=== PATIENT | female | born 1970 | race Caucasian/White ===

== ENCOUNTER 2019-07-16 09:51 | Outpatient (CLI) | payer OTHER, SELFPAY ==
--- NOTE | ~2019-07-16 | XR_ITS ---
EXAMINATION: XR chest 2V DATE: 07/16/2019 10:15 INDICATION: Pleural effusion. TECHNIQUE: Frontal and lateral views of the chest were obtained. COMPARISON: Chest 2 views 05/09/2019 FINDINGS: There is a moderate-sized right pleural effusion. There are airspace opacities at right karol g base, likely atelectasis. No pneumothorax. The heart size is normal. IMPRESSION: 1. Moderate-sized right pleural effusion with interval improvement. Reviewed, dictated and finalized at location A. [facility]
== END 2019-07-16 09:52 | disposition home or self-care (01) ==
DX: J90 Pleural effusion, not elsewhere classified (principal)
CPT/HCPCS: 71046

== ENCOUNTER 2019-11-05 07:53 | Outpatient (CLI) | payer OTHER, SELFPAY ==
--- NOTE | ~2019-11-05 | XR_ITS ---
XR chest 2V DATE: 11/05/2019 08:14 INDICATION: Right pleural effusion TECHNIQUE: PA and lateral views COMPARISON: 07/16/2019 PA and lateral chest FINDINGS: There is persistent mild right pleural effusion and right basilar infiltrate or atelectasis . There is no significant change since 07/16/2019. Normal heart size. No left pleural effusion. No hilar or mediastinal enlargement. Mild levoscoliosis and degenerative change of the thoracic spine. Diffuse osteopenia. IMPRESSION: Mild right pleural effusion and right basilar infiltrate or atelectasis, stable since 06/18 Reviewed, dictated and finalized at location A. IMPRESSION: Mild right pleural effusion and right basilar infiltrate or atelect asis, stable since 07/16/2019
== END 2019-11-05 07:54 | disposition home or self-care (01) ==
PROVIDERS: PCP Family Medicine; Visit Provider Internal Medicine Critical Care Medicine
DX: J90 Pleural effusion, not elsewhere classified (principal)
CPT/HCPCS: 71046

== ENCOUNTER 2020-05-02 09:37 | Outpatient (CLI) | payer OTHER, SELFPAY ==
--- NOTE | ~2020-05-02 | XR_ITS ---
XR chest 2V DATE: 05/02/2020 10:04 INDICATION: Right pleural effusion TECHNIQUE: PA and lateral views COMPARISON: 11/04/2021 view chest 07/16/2021 view chest 05/09/2019 2 view chest FINDINGS: There is stable right lower lobe infiltrate and/atelectasis and mild right pleural effusion compared to 11/05/2019. Normal heart size. No hilar or mediastinal enlargement. No pulmonary infiltrate or consolidation is n oted otherwise. No left pleural effusion. No pulmonary vascular congestion or pneumothorax. IMPRESSION: Moderate pleural effusion and right basilar infiltrate or atelectasis, stable since 2019 Reviewed, dictated and finalized at location B. OMER RETENTION SPECIALIST IMPRESSION: Moderate pleural effusion and right basilar infiltrate or atelectas is, stable since 11/05/2019
== END 2020-05-02 09:38 | disposition home or self-care (01) ==
PROVIDERS: PCP Family Medicine
DX: J90 Pleural effusion, not elsewhere classified (principal)
CPT/HCPCS: 71046

== ENCOUNTER 2020-06-12 07:52 | Outpatient (CLI) | payer OTHER, SELFPAY ==
--- NOTE | ~2020-06-12 | XR_ITS ---
EXAMINATION: XR_ENEMABAC_CR DATE: 06/12/2020 08:52 INDICATION: Colon cancer screening. TECHNIQUE: A operations expert radiograph was obtained. A catheter was inserted into the patient's rectum. Contra st was infused by gravity. Gas was infused by hand pump. Fluoroscopic spot images and conventional ra diographs were obtained. Fluoroscopy exposure time was 2.2 minutes. A total of 28 fluoroscopic images and 13 overhead radiographs were obtained. COMPARISON: None. FINDINGS: There are few scattered colonic diverticula.. No strictures, intraluminal nodules/masses or other muc osal irregularities. Combined instrumented anterior and posterior spinal fusion at L5-S1. There is gr angela 1 anterolisthesis L4 on L5. IMPRESSION: 1. Minimal diverticulosis. Otherwise unremarkable double contrast enema. Reviewed, dictated and finalized at location A. LING COUNSELLOR
== END 2020-06-12 07:53 | disposition home or self-care (01) ==
PROVIDERS: PCP Family Medicine
DX: Z12.11 Encounter for screening for malignant neoplasm of colon (principal)
CPT/HCPCS: 74280

== ENCOUNTER 2023-02-21 19:10 | Emergency (ER) | payer OTHER, SELFPAY ==
--- NOTE | ~2023-02-21 | CT_ITS ---
EXAMINATION: CT pelvis wo con DATE: 02/21/2023 21:16 INDICATION: Right hip pain TECHNIQUE: High resolution computed tomography (CT) of the pelvis was performed without intravenous c ontrast. Additional sagittal and coronal reconstructions were performed. Automated exposure control a nd iterative reconstruction technique were employed. The dose-length product was 785.52 mGy-cm. COMPARISON: Pelvis and left hip radiographs dated 12/10/2003 FINDINGS: Mild spondylosis in the lower lumbar spine with combined instrumented L5-S1 anterior and posterior sp inal fusion. See separate lumbar spine CT report for further detail. Bilateral hip osteoarthritis. No fracture or suspected avascular necrosis. There is subtle stranding overlying the right greater troc hanter suggesting trochanteric bursitis. There are couple heterotopic enthesopathic ossicles at the g reater trochanteric insertion of the right gluteus medius tendon. No asymmetric muscular atrophy of t he pelvis or proximal thighs. Postoperative change along the anterior pelvic wall with very small john tral hernia along the midline surgical scar. There are few diverticula along the visualized sigmoid c olon without adjacent inflammatory stranding to suggest diverticulitis. The uterus is not identified and has likely been surgically resected. Bladder is normal. No pathologically enlarged pelvic or ingu inal lymphadenopathy. IMPRESSION: 1. Mild bilateral hip osteoarthritis. No acute osseous abnormality. 2. Suggestion of right trochanteric bursitis and underlying chronic enthesopathy at the greater troch anteric insertion of the right gluteus medius tendons. Reviewed, dictated and finalized at location A. IMPRESSION: 1. Mild bilateral hip osteoarthritis. No acute osseous abnormality. 2. Suggestion of right trochanteric bursitis and underlying chronic enthesopath y at the greater trochanteric insertion of the right gluteus medius tendons.
--- NOTE | ~2023-02-21 | CT_ITS ---
IMPRESSION: 1. Mild lumbar spondylosis with combined instrumented anterior and posterior sp inal fusion at L5-S1. 2. Chronic mild T11 compression fracture. 3. Likely chronic small right pleural effusion with pleural thickening and asso ciated round atelectasis in the right lower lobe. EXAMINATION: CT lumbar spine wo con DATE: 02/21/2023 21:16 INDICATION: Right radicular pain TECHNIQUE: Computed tomography (CT) of the lumbar spine was performed without intravenous contrast. A utomated exposure control and iterative reconstruction technique were employed. The dose-length produ ct was 1069.76 mGy-cm. COMPARISON: 10/04/2013 FINDINGS: Interval L5-S1 anterior and posterior spinal fusion with interbody fusion device and bilateral vertic al aileen and pedicle screw fixation. L5 is fused with 7 mm anterolisthesis with respect to S1. There is 3 mm anterolisthesis L4 on L5. Chronic appearing T11 compression fracture new since 2013 with 20% an terior vertebral body height loss. Remaining vertebral body heights are normal. Small right pleural e ffusion likely of exudative etiology with thickened pleura with a few scattered pleural calcific loca tion suggesting this is chronic. There is adjacent round atelectasis in the right lower lobe. Paraver tebral soft tissues are unremarkable. The following disc levels are specifically discussed: T11-T12: The disc does not extend beyond the endplate margin. There is mild to moderate bilateral fac et joint osteoarthritis. There is no neural foraminal stenosis. There is no central canal stenosis. T12-L1: Disc is mildly bulging. There is mild bilateral facet joint osteoarthritis. There is no neura l foraminal stenosis. There is no central canal stenosis. L1-L2: Disc is mildly bulging. There is mild bilateral facet joint osteoarthritis. There is no neural foraminal stenosis. There is normal central canal stenosis. L2-L3: Disc is mildly bulging. There is mild bilateral facet joint osteoarthritis. There is no neural foraminal stenosis. There is minimal central canal stenosis. L3-L4: Disc is mildly bulging. There is mild bilateral facet joint osteoarthritis. There is mild bila teral neural foraminal stenosis. There is minimal central canal stenosis. L4-L5: Disc is bulging. There is severe bilateral facet joint osteoarthritis. There is moderate bilat eral, right greater than left. neural foraminal stenosis. There is mild central canal stenosis. L5-S1: Disc space and bilateral facet joints are fused. There is mild bilateral neural foraminal sten osis. There is no central canal stenosis. IMPRESSION: 1. Mild lumbar spondylosis with combined instrumented anterior and posterior spinal fusion at L5-S1. 2. Chronic mild T11 compression fracture. 3. Likely chronic small right pleural effusion with pleural thickening and associated round atelectas is in the right lower lobe. Reviewed, dictated and finalized at location A.
[2023-02-21 19:25] VITALS: BP 119/69; PULSE 62; RESP 18; TEMP 36.3; O2SAT 99
[2023-02-21] MEDS: KETOROLAC 30 MG/ML VIAL (*BKC) IM (21:21)
--- NOTE | 2023-02-21 21:44 | ED.GENADULT ---
HPI - General Adult General Chief complaint: Extremity Injury, Lower Stated complaint: right hip pain - denies injury - hx RA Time Seen by Provider: 02/21/23 20:21 Source: patient Mode of arrival: ambulatory Limitations: no limitations History of Present Illness HPI narrative: This is a 52-year-old female with PMH of RA, OA, osteopenia Who presents to the ED with chief complaint of right hip pain x3 days. Patient denies any trauma or injury. She reports this has been gradually worsening since onset. Reports the pain is mostly in the right lateral hip area. Denies any skin changes or bruising. Reports she has been able to walk but it has been painful. Reports she has occasional radiating pains down the leg feel more due to her chronic back pain. Denies any numbness, weakness or any further site of pain. Related Data Allergies Allergy/AdvReac Type Severity Reaction Status Date / Time No Known Allergies Allergy Unknown Verified 02/21/23 19:10 No Known Allergies Allergy Paleness Uncoded 02/21/23 19:10 Review of Systems Review of Systems: All systems as dictated in [facility] Family History Family History (System 04/21/19 @ 12:09 by Rianna Martinez) Mother Family history of diabetes mellitus in first degree relative Other Cerebrovascular accident Diabetes mellitus Family history of cardiovascular disease Family history of coronary artery disease Family history of malignant melanoma Social History Social History (System 04/21/19 @ 12:09 by Rianna Martinez) Smoking end date: 06/16/05 Alcohol intake: never Exam Narrative: GENERAL: Well-appearing, well-nourished, and in no acute distress. HEAD: Normocephalic, atraumatic. EYES: PERRLA and EOMI. ENT: Nares clear, no rhinorrhea or epistaxis. Mucous membranes moist. Oropharynx without tonsillar hypertrophy exudate or other lesions. NECK: Supple. No adenopathy or masses. CHEST: No respiratory distress. Clear to auscultation. No wheezes rales or rhonchi HEART: Regular rate and rhythm. No murmur heard. Normal peripheral pulses. ABDOMEN: Soft, nontender, nondistended, normal active bowel sounds. MSK: Focal tenderness over the right lateral hip. No pain with logroll. She is able to bear weight. Neurovascular intact distally. No redness, bruising or warmth. No skin lesions. Left lower extremity is benign. SKIN: Warm, dry, no rash. NEURO: Alert and oriented x3. No focal deficits. PSYCH: Normal mood and affect. Course Vital Signs Vital signs: Vital Signs Temperature 97.3 F L 02/21/23 19:25 Pulse Rate 62 02/21/23 19:25 Respiratory Rate 18 02/21/23 19:25 Blood Pressure 119/69 02/21/23 19:25 Pulse Oximetry 99 02/21/23 19:25 Oxygen Delivery Room Air 02/21/23 19:25 Temperature 97.3 F L 02/21/23 19:25 Pulse Rate 65 02/21/23 22:37 Respiratory Rate 16 02/21/23 22:37 Blood Pressure 128/74 02/21/23 22:37 Pulse Oximetry 100 02/21/23 22:37 Oxygen Delivery Room Air 02/21/23 19:25 Medical Decision Making MDM Narrative Medical decision making narrative: This is a 52-year-old female who presents to the ED with chief complaint of right lateral hip pain onset x3 days. No injuries or trauma. Vitals are normal. Exam shows tenderness to the lateral hip without any skin changes. No warmth. Very low concern for any kind of infectious process. Symptoms are most likely consistent with right trochanteric bursitis. CT pelvis and CT lumbar spine showed degenerative changes throughout but no acute findings. CT pelvis does show evidence of bursitis on the right side. She improved greatly with Toradol here. Prescription for naproxen twice daily was given. Pt will be discharged in stable condition. Return precautions given and supportive measures discussed. Pt is understanding and agreeable with plan for discharge and follow-up with PCP. Vital Signs Vital Signs: Vital Signs Temperature 97.3 F L
[2023-02-21 22:37] VITALS: BP 128/74; PULSE 65; RESP 16; O2SAT 100
== END 2023-02-21 22:39 | disposition home or self-care (01) ==
PROVIDERS: Emergency Provider Physician Assistant
DX: M71.9 Bursopathy, unspecified (principal); M16.0 Bilateral primary osteoarthritis of hip; M06.9 Rheumatoid arthritis, unspecified; M85.80 Other specified disorders of bone density and structure, unspecified site; Z87.891 Personal history of nicotine dependence; M47.816 Spondylosis without myelopathy or radiculopathy, lumbar region; J90 Pleural effusion, not elsewhere classified; M48.54XA Collapsed vertebra, not elsewhere classified, thoracic region, initial encounter for fracture
CPT/HCPCS: 72131; 72192; 96372; 99284; J1885

== ENCOUNTER 2024-11-08 14:39 | Emergency (ER) | payer OTHER, MEDICAID, SELFPAY ==
--- NOTE | ~2024-11-08 | XR_ITS ---
XR foot LT min 3V Ordering provider: Leah Berman NP History: . PAIN MIDFOOT . Comparison: None. FINDINGS: BONES: No acute fracture or dislocation. JOINT SPACES: Narrowing of the proximal and distal interphalangeal joints.. No tarsal coalition. SOFT TISSUES: Ossification of the insertion of the tendo Achilles. IMPRESSION: No acute osseous abnormality left foot. Polyarticular osteoarthritic changes Reviewed, dictated and finalized at location A.
[2024-11-08 14:45] VITALS: BP 151/81; PULSE 88; RESP 16; TEMP 36.4; O2SAT 100
--- NOTE | 2024-11-08 14:46 | ED.LOWEXIN ---
HPI - Extremity Injury (Lower) General Chief Complaint: Extremity Injury, Lower Stated Complaint: INJURED L FOOT Time Seen by Provider: 11/08/24 14:49 Source: patient, RN notes reviewed and old records reviewed Mode of arrival: ambulatory Limitations: no limitations History of Present Illness HPI Narrative: 54 year old female who presents to express care with complaints of stepping out of bed yesterday and felt a pop in the dorsal and plantar mid foot aspect with pain which continues with swelling noted. Patient reports history of RA and is concerned for stress fracture to area. Patient reports that pain continues to left dorsal aspect of foot which radiates around some to plantar area despite ice elevation and Aleve OTC pain medication MD complaint: foot injury Onset (ago): day(s) (yesterday) Place: home Severity scale (1-10): 8 Exacerbating factors: weight bearing and other (standing) Treatments prior to arrival: cold therapy and NSAIDS (Aleve and elevation) Related Data Home Medications ?Medication ?Instructions ?Recorded ?Confirmed ?Last Taken ?Type cyclobenzaprine 10 mg tablet 10 mg PO TID 09/27/24 11/08/24 Unknown History duloxetine 30 mg capsule,delayed 30 mg PO QPM 09/27/24 11/08/24 Unknown History release duloxetine 60 mg capsule,delayed 60 mg PO QAM 09/27/24 11/08/24 Unknown History release erenumab-aooe 70 mg/mL 70 mg subcut MONTHLY 09/27/24 11/08/24 Unknown History subcutaneous auto-injector (Aimovig Autoinjector) gabapentin 400 mg capsule 400 mg PO TID 09/27/24 11/08/24 Unknown History losartan 50 mg tablet 50 mg PO DAILY 09/27/24 11/08/24 Unknown History mepolizumab 100 mg/mL subcutaneous 100 mg subcut MONTHLY 09/27/24 11/08/24 Unknown History syringe (Nucala) nortriptyline 25 mg capsule 25 mg PO DAILY 09/27/24 11/08/24 Unknown History ropinirole 1 mg tablet 1 mg PO ONCE 09/27/24 11/08/24 Unknown History ubrogepant 100 mg tablet (Ubrelvy) 100 mg PO .PRN 09/27/24 11/08/24 Unknown History upadacitinib 45 mg tablet,extended 45 mg PO DAILY 09/27/24 11/08/24 Unknown History release 24 hr (Rinvoq) Allergies Allergy/AdvReac Type Severity Reaction Status Date / Time No Known Allergies Allergy Unknown Verified 11/08/24 14:47 Review of Systems Review of Systems: CONSTITUTIONAL: Denies fever, chills, or sweats. EYES: Denies visual changes, redness, or discharge. ENT: Denies rhinorrhea, congestion, sore throat, or otalgia. CARDIOVASCULAR: Denies chest pain, palpitations, or edema. RESPIRATORY: Denies cough or dyspnea. GASTROINTESTINAL: Denies abdominal pain, nausea, vomiting, or diarrhea. GENITOURINARY: Denies dysuria or hematuria. SKIN: Denies rash or itching. MUSCULOSKELETAL: Denies back pain, reports pain to her left dorsal and plantar aspect of mid foot , or myalgia. NEUROLOGIC: Denies headache, numbness, or weakness. PSYCHIATRIC: Reports history of anxiety or depression. All systems reviewed & are unremarkable except as noted in HPI and below PMFSH Past Medical History Medical History Laryngopharyngeal reflux (LPR) Right-sided temporomandibular joint pain-dysfunction syndrome Chronic sinusitis Hypertrophy of nasal turbinates Nasal congestion Deviated nasal septum Otalgia of right ear Dysphagia Tobacco use disorder RLS (restless legs syndrome) COPD (chronic obstructive pulmonary disease) Migraine Neuropathy Rheumatoid arthritis Family History Family History Mother Family history of diabetes mellitus in first degree relative Other Cerebrovascular accident Diabetes mellitus Family history of cardiovascular disease Family history of coronary artery disease Family history of malignant melanoma Social History Social History Social History: Caffeine-none Years smoked: 40 Smoking status: Current every day smoker Alcohol intake: never Substance use: never Substance use type: does not use Comments At time of signature, agree with nursing past medical, surgical, social and family history. There is no relevant family history pertinent to the presenting complaint Exam Narrative: GENERAL: Well-appearing, well-nourished, obese and in no acute distress. HEAD: Normocephalic, atraumatic. EYES: PERRLA and EOMI. ENT: Nares clear, no rhinorrhea or epistaxis. Mucous membranes moist.TM's normal throat pink with no swelling NECK: Supple. no lymphadenopathy CHEST: Clear to auscultation. No respiratory distress. SAO2 100% on room air HEART: Regular rate and rhythm. No murmur heard. Normal peripheral pulses. ABDOMEN: Soft, nontender, nondistended, normal active bowel sounds. EXTREMITIES: Normal range of motion. No edema. Exception noted to left dorsal foot with some swelling noted with patient reporting pain to plantar aspect of left foot also when she ambulates. Pedal pulses palpable to left foot of adequate quality sensation intact and to flex and extend foot. SKIN: Warm, dry, no rash. NEURO: No focal deficits. Alert and oriented x3. Course Course Emergency Course: Patient is aware of diagnosis, understands and agrees to treatment plan.? Anticipatory guidance given.? Patient agrees to follow-up as directed and is aware of reasons to seek care at the emergency department. Portions of this record may have been created with voice recognition software Level of Care: Express Care Visit Vital Signs Vital signs: Vital Signs Temperature 36.4 C 11/08/24 14:45 Pulse Rate 88 11/08/24 14:45 Respiratory Rate 16 11/08/24 14:45 Blood Pressure 151/81 H 11/08/24 14:45 Pulse Oximetry 100 11/08/24 14:45 Temperature 36.4 C 11/08/24 14:45 Pulse Rate 88 11/08/24 14:45 Respiratory Rate 16 11/08/24 14:45 Blood Pressure 151/81 H 11/08/24 14:45 Pulse Oximetry 100 11/08/24 14:45 Reviewed MDM - Extremity Injury (Lower) Differential Diagnosis Differential diagnosis: Likely other (left foot pain and swelling. osteoarhritis, fracture of left foot, arthritis flare) Medical Records Attestation: I reviewed the patient's medical records. Imaging Data Attestation: I personally reviewed and interpreted this imaging study as follows: My impression: polyarticular osteoarthritic changes Radiologist's impression: [facility] [address] [place] [address] [place] [address] XRay Report Signed Patient: Sakshi Antony : 1970 MR#: [id number] Age: 54 Acct:[id number] Loc: [id number] ADM Date: 11/08/24Attending Dr: Ordering Physician: Leah Berman APRN Date of Service: 11/08/24 Procedure(s): XR foot LT min 3V Accession Number(s): [id number] cc: Kari Hudson DO; Leah Berman APRN~ XR foot LT min 3V Ordering provider: Leah Berman NP History: . PAIN MIDFOOT . Comparison: None. FINDINGS: BONES: No acute fracture or dislocation. JOINT SPACES: Narrowing of the proximal and distal interphalangeal joints.. No tarsal coalition. SOFT TISSUES: Ossification of the insertion of the tendo Achilles. IMPRESSION: No acute osseous abnormality left foot. Polyarticular osteoarthritic changes Reviewed, dictated and finalized at location A. Please be advised this is a medical document. It is intended for coes-hi-usxf communication. It is written in medical language and may contain unfamiliar abbreviations or verbiage. Medical documents are intended to carry relevant information, facts as evident, and the clinical opinion of the practitioner at the time of the encounter. This report may have been done utilizing a voice recognition system. Attempts have been made to correct errors. However, there may be uncorrected grammatical, spelling, and recognition errors present. The file time of this note does not necessarily represent the time of service. Dictated By: Watson Garcia MD 11/08/24 1522 Signed By: <Electronically signed by Watson Garcia MD in OV> Critical Care Time Critical Care Time Critical Care Time: No Discharge Plan Discharge Clinical Impression: Foot pain, left Patient Disposition: Home Condition: Stable Instructions: Arthralgia (ED), Arthritis (ED) Additional Instructions: Elastic wrap or orthopedic splint as directed for comfort for the next 5-7 days Tylenol for lesser pain Ibuprofen regularly for the next 2-3 days for the inflammation Follow-up with orthopedic surgeon if no improved Follow-up with PCP if further problems or concerns Ice to the area 20-30 minutes 4-6 times a day Elevate above heart If your symptoms persist, change or worsen significantly before you can contact your personal physician then please, without delay, go to the emergency department for further evaluation. Follow-up with PCP in 7-10 days or sooner if needed Follow up with PCP soon in regards to your blood pressure which is elevated above threshold for referral. Blood pressure above 120/80 may indicate pre-hypertension. 151 81 Patient Language: Serbian Prescriptions: No Action gabapentin 400 mg capsule 400 mg PO TID Rinvoq 45 mg tablet extended release 24 hr 45 mg PO DAILY Nucala 100 mg/mL syringe 100 mg subcut MONTHLY nortriptyline 25 mg capsule 25 mg PO DAILY Aimovig Autoinjector 70 mg/mL auto-injector 70 mg subcut MONTHLY losartan 50 mg tablet 50 mg PO DAILY cyclobenzaprine 10 mg tablet 10 mg PO TID ropinirole 1 mg tablet 1 mg PO ONCE duloxetine 60 mg capsule,delayed release(DR/EC) 60 mg PO QAM duloxetine 30 mg capsule,delayed release(DR/EC) 30 mg PO QPM Ubrelvy 100 mg tablet 100 mg PO .PRN Rx Instructions: as a single dose; may repeat once in >=2 hours after first dose if needed naproxen 500 mg tablet 500 mg PO BID PRN (Reason: pain) Qty: 30 0RF hydroxyzine HCl 25 mg tablet See Rx Instructions .ROUTE .COMPLEX Qty: 60 0RF Dose Instruction: TAKE 1 TABLET BY MOUTH 3 TIMES DAILY NEEDED FOR ANXIETY Rx Instructions: TAKE 1 TABLET BY MOUTH 3 TIMES DAILY NEEDED FOR ANXIETY famotidine 40 mg tablet 40 mg PO DAILY 30 Days Qty: 30 2RF Rx Instructions: to be used with meals at bed time Follow-up/Referrals: Kari Hudson DO [Primary Care Provider] - Time of Disposition: 15:35 Quality [place] Coma Scale Eyes: Open Verbal: Oriented and Alert Motor: Follows Commands [place] Coma Total Score: 15
== END 2024-11-08 15:43 | disposition home or self-care (01) ==
PROVIDERS: Emergency Provider Registered Nurse; PCP Family Medicine
DX: M79.672 Pain in left foot (principal); F17.200 Nicotine dependence, unspecified, uncomplicated; G25.81 Restless legs syndrome; J44.9 Chronic obstructive pulmonary disease, unspecified; M06.9 Rheumatoid arthritis, unspecified; G62.9 Polyneuropathy, unspecified; K21.9 Gastro-esophageal reflux disease without esophagitis
CPT/HCPCS: 73630; 99213; G0463

== ENCOUNTER 2024-12-01 17:03 | Emergency (ER) | payer MEDICAID, SELFPAY ==
--- NOTE | ~2024-12-01 | XR_ITS ---
HISTORY: right medial wrist pain/redness. fell COMPARISON: None TECHNIQUE: 3 views of the right wrist were performed. FINDINGS: No acute fracture is identified. The carpal arcs are intact. Mild radiocarpal joint space narrowing with sclerosis of the distal radius is present. The remaining visualized joint spaces are otherwise preserved. Trace negative ulnar variance is detected. Bone mineralization is age-appropriate. Ulnar soft tissue swelling is noted. No radiopaque foreign body is identified. IMPRESSION: Soft tissue swelling without acute fracture. Reviewed, dictated and finalized at location A.
--- NOTE | 2024-12-01 17:05 | ED.UPPEXIN ---
HPI - Extremity Injury (Upper) General Chief Complaint: Extremity Injury, Upper Stated Complaint: Right Wrist Pain Source: patient and RN notes reviewed Mode of arrival: ambulatory Limitations: no limitations History of Present Illness HPI narrative: Patient is a 54 year old female who presents to the [facility] with complaints of right wrist pain. Patient reports history of RA. States that she is having an increase in inflammation due to recently being taken off her Rinvoq. Patient states that her left ankle gave out last night around 3am. She states that she fell between a wall and a railing onto her right wrist. She reports pain, tenderness, and swelling to the ulnar side of her right wrist. She reports normal range of motion but with discomfort. She is neurovascularly intact. Sensation intact. Related Data Home Medications ?Medication ?Instructions ?Recorded ?Confirmed ?Last Taken ?Type cyclobenzaprine 10 mg tablet 10 mg PO TID 09/27/24 11/08/24 Unknown History duloxetine 30 mg capsule,delayed 30 mg PO QPM 09/27/24 11/08/24 Unknown History release duloxetine 60 mg capsule,delayed 60 mg PO QAM 09/27/24 11/08/24 Unknown History release erenumab-aooe 70 mg/mL 70 mg subcut MONTHLY 09/27/24 11/08/24 Unknown History subcutaneous auto-injector (Aimovig Autoinjector) gabapentin 400 mg capsule 400 mg PO TID 09/27/24 11/08/24 Unknown History losartan 50 mg tablet 50 mg PO DAILY 09/27/24 11/08/24 Unknown History mepolizumab 100 mg/mL subcutaneous 100 mg subcut MONTHLY 09/27/24 11/08/24 Unknown History syringe (Nucala) nortriptyline 25 mg capsule 25 mg PO DAILY 09/27/24 11/08/24 Unknown History ropinirole 1 mg tablet 1 mg PO ONCE 09/27/24 11/08/24 Unknown History ubrogepant 100 mg tablet (Ubrelvy) 100 mg PO .PRN 09/27/24 11/08/24 Unknown History upadacitinib 45 mg tablet,extended 45 mg PO DAILY 09/27/24 11/08/24 Unknown History release 24 hr (Rinvoq) Allergies Allergy/AdvReac Type Severity Reaction Status Date / Time No Known Allergies Allergy Unknown Verified 11/08/24 14:47 Review of Systems Review of Systems: CONSTITUTIONAL: Denies fever, chills, or sweats. EYES: Denies visual changes, redness, or discharge. ENT: Denies otalgia and sore throat CARDIOVASCULAR: Denies chest pain, palpitations, or edema. RESPIRATORY: Denies cough or dyspnea. GASTROINTESTINAL: Denies abdominal pain, nausea, vomiting, or diarrhea. GENITOURINARY: Denies dysuria or hematuria. SKIN: Denies rash or itching. MUSCULOSKELETAL: Reports right wrist pain. NEUROLOGIC: Denies headache, numbness, or weakness. Pertinent positives per HPI. [facility] Past Medical History Medical History Laryngopharyngeal reflux (LPR) Right-sided temporomandibular joint pain-dysfunction syndrome Chronic sinusitis Hypertrophy of nasal turbinates Nasal congestion Deviated nasal septum Otalgia of right ear Dysphagia Tobacco use disorder RLS (restless legs syndrome) COPD (chronic obstructive pulmonary disease) Migraine Neuropathy Rheumatoid arthritis Family History Family History Mother Family history of diabetes mellitus in first degree relative Other Cerebrovascular accident Diabetes mellitus Family history of cardiovascular disease Family history of coronary artery disease Family history of malignant melanoma Social History Social History Social History: Caffeine-none Years smoked: 40 Smoking status: Current every day smoker Alcohol intake: never Substance use: never Substance use type: does not use Comments At the time of my signature, I reviewed and agree with the nursing past medical, surgical, social, and family history. There is no relevant family history pertinent to the patient complaint. Exam Narrative: GENERAL: This is a well-nourished, well-developed patient, in no apparent distress. HEAD: normocephalic, atraumatic. EYES: PERRL. Sclera clear/white. Vision is grossly intact. EARS: External ears normal, auditory canals clear and without drainage, TMs normal without perforation. Hearing grossly intact. NOSE: External nose normal with no obvious nasal discharge, nares without redness, no rhinorrhea. THROAT: Mucous membranes moist, posterior pharynx clear. NECK: Neck supple, non-tender without lymphadenopathy, masses or thyromegaly. CARDIOVASCULAR: Regular rate and rhythm without murmurs, gallops, or rubs. RESPIRATORY: Clear to auscultation. Breath sounds equal bilaterally. No wheezes, rales, or rhonchi. GASTROINTESTINAL: Abdomen soft, non-tender, nondistended. Bowel sounds are active. No hepato-splenomegaly, or palpable masses. No guarding. SKIN: warm, intact with no suspicious lesions or rash, good texture and turgor. NEURO: awake, alert, and oriented to person, place and time. There were no obvious focal neurologic abnormalities. EXTREMITIES: the R wrist is with obvious asymmetry or deformity when compared to the L wrist. + swelling to the ulnar aspect of the wrist. Mild erythema. No bony crepitus.N ormal flexion/extension, ulnar/radial deviation. Motor/sensory function of ulnar, radial, median nerves intact. Ulnar and radial pulses intact. Course Course Level of Care: Express Care Visit Vital Signs Vital signs: Vital Signs Temperature 98.1 F 12/01/24 17:10 Pulse Rate 85 12/01/24 17:10 Respiratory Rate 22 H 12/01/24 17:10 Blood Pressure 123/64 12/01/24 17:10 Pulse Oximetry 97 12/01/24 17:10 Oxygen Delivery Room Air 12/01/24 17:10 Temperature 98.1 F 12/01/24 17:10 Pulse Rate 85 12/01/24 17:10 Respiratory Rate 22 H 12/01/24 17:10 Blood Pressure 123/64 12/01/24 17:10 Pulse Oximetry 97 12/01/24 17:10 Oxygen Delivery Room Air 12/01/24 17:10 Reviewed MDM - Extremity Injury (Upper) MDM Narrative Medical decision making narrative: Use the RICE method at home. May take ibuprofen and/or Tylenol if needed. If symptoms persist in 1 week after conservative treatment, follow-up with specialist. Differential Diagnosis Differential diagnosis: Likely sprain and strain of wrist, fracture of wrist and fracture of hand Imaging Data Attestation: I personally reviewed and interpreted this imaging study as follows: Radiologist's impression: [facility] [address] [place] [address] XRay Report Signed Patient: Sakshi Antony : 1970 MR#: [id number] Age: 54 Acct:[id number] Loc: [facility] ADM Date: 12/01/24Attending Dr: Ordering Physician: Belgica Hernandez APRN Date of Service: 12/01/24 Procedure(s): XR wrist RT min 3V Accession Number(s): [id number] cc: Belgica Hernandez APRN; [employer]ODUCTION MACHINE OPERATOR PHYSICIAN~ HISTORY: right medial wrist pain/redness. fell COMPARISON: None TECHNIQUE: 3 views of the right wrist were performed. FINDINGS: No acute fracture is identified. The carpal arcs are intact. Mild radiocarpal joint space narrowing with sclerosis of the distal radius is present. The remaining visualized joint spaces are otherwise preserved. Trace negative ulnar variance is detected. Bone mineralization is age-appropriate. Ulnar soft tissue swelling is noted. No radiopaque foreign body is identified. IMPRESSION: Soft tissue swelling without acute fracture. Reviewed, dictated and finalized at location A. Please be advised this is a medical document. It is intended for [id number] communication. It is written in medical language and may contain unfamiliar abbreviations or verbiage. Medical documents are intended to carry relevant information, facts as evident, and the clinical opinion of the practitioner at the time of the encounter. This report may have been done utilizing a voice recognition system. Attempts have been made to correct errors. However, there may be uncorrected grammatical, spelling, and recognition errors present. The file time of this note does not necessarily represent the time of service. Dictated By: Tiffanie Swenson MD 12/01/241751 Signed By: <Electronically signed by Tiffanie Swenson MD in OV> 12/01/241752 Critical Care Time Critical Care Time Critical Care Time: No Discharge Plan Discharge Clinical Impression: Right wrist sprain Qualifiers: Encounter type: initial encounter Wrist sprain location: unspecified location Qualified Code(s): S63.501A - Unspecified sprain of right wrist, initial encounter Patient Disposition: Home Condition: Stable Instructions: P.R.I.C.E. Treatment (ED), Wrist Sprain (ED) Additional Instructions: Use the RICE method at home. May take ibuprofen and/or Tylenol if needed. If symptoms persist in 1 week after conservative treatment, follow-up with specialist. Patient Language: Jamaican Prescriptions: New prednisone 50 mg tablet 50 mg PO DAILY 5 Days Qty: 5 0RF No Action gabapentin 400 mg capsule 400 mg PO TID Rinvoq 45 mg tablet extended release 24 hr 45 mg PO DAILY Nucala 100 mg/mL syringe 100 mg subcut MONTHLY nortriptyline 25 mg capsule 25 mg PO DAILY Aimovig Autoinjector 70 mg/mL auto-injector 70 mg subcut MONTHLY losartan 50 mg tablet 50 mg PO DAILY cyclobenzaprine 10 mg tablet 10 mg PO TID ropinirole 1 mg tablet 1 mg PO ONCE duloxetine 60 mg capsule,delayed release(DR/EC) 60 mg PO QAM duloxetine 30 mg capsule,delayed release(DR/EC) 30 mg PO QPM Ubrelvy 100 mg tablet 100 mg PO .PRN Rx Instructions: as a single dose; may repeat once in >=2 hours after first dose if needed naproxen 500 mg tablet 500 mg PO BID PRN (Reason: pain) Qty: 30 0RF famotidine 40 mg tablet 40 mg PO DAILY 30 Days Qty: 30 2RF Rx Instructions: to be used with meals at bed time hydroxyzine HCl 25 mg tablet See Rx Instructions .ROUTE .COMPLEX Qty: 60 0RF Dose Instruction: TAKE 1 TABLET BY MOUTH 3 TIMES DAILY NEEDED FOR ANXIETY Rx Instructions: TAKE 1 TABLET BY MOUTH 3 TIMES DAILY NEEDED FOR ANXIETY Follow-up/Referrals: PHYSICIAN,[employer] PRODUCTION MACHINE OPERATOR [Primary Care Provider] - Time of Disposition: 18:00
[2024-12-01 17:10] VITALS: BP 123/64; PULSE 85; RESP 22; TEMP 36.7; O2SAT 97
[2024-12-01] MEDS: KETOROLAC (*BKC) 60 MG/2 ML VIAL IM (18:08)
== END 2024-12-01 18:20 | disposition home or self-care (01) ==
PROVIDERS: Emergency Provider Nurse Practitioner
DX: S63.501A Unspecified sprain of right wrist, initial encounter (principal); W19.XXXA Unspecified fall, initial encounter; M06.9 Rheumatoid arthritis, unspecified; G25.81 Restless legs syndrome; J44.9 Chronic obstructive pulmonary disease, unspecified; G62.9 Polyneuropathy, unspecified; F17.200 Nicotine dependence, unspecified, uncomplicated
CPT/HCPCS: 73110; 96372; 99213; G0463; J1885